=== PATIENT | female | born 1950 | race Hispanic/Latino ===

== ENCOUNTER 2018-02-02 23:36 | Emergency (ER) | payer MEDICARE ==
[2018-02-03] MEDS ORDERED: LIDOCAINE HCL 2% VISCOUS 15 ML UDCUP ONE (00:08)
[2018-02-03] MEDS ORDERED: MAGNESIUM HYDROXIDE 30 ML/UDCUP ONE (00:08)
[2018-02-03 00:13] LABS: APPEARANCE,URINE CLOUDY (CLEAR); BILIRUBIN,URINE SMALL (NEGATIVE); COLOR,URINE RED (YELLOW); GLUCOSE, URINE (UA) 500 mg/dL (NEGATIVE); KETONES,URINE 5 mg/dL (NEGATIVE); LEUKOCYTE ESTERASE ,URINE MODERATE (NEGATIVE); NITRATE,URINE POSITIVE (NEGATIVE); OCCULT BLOOD,URINE LARGE (NEGATIVE); PH,URINE 5.5 (5.0-8.0); PROTEIN,URINE 100 (NEGATIVE)
[2018-02-03 00:14] LABS: EOSINOPHILS % (AUTO) 2.5 % (0.0-8.0); HEMATOCRIT 36.9 % (36-48); MEAN CORPUSCULAR HEMOGLOBIN 29.8 pg (27.0-33.0); MEAN CORPUSCULAR HGB CONC 34.7 g/dL (32.0-36.0); MEAN CORPUSCULAR VOLUME 85.9 fL (79-99); MONOCYTES % (AUTO) 4.6 % (3.0-13.0); NEUTROPHILS % (AUTO) 62.9 % (40.0-77.0); PLATELET COUNT (AUTO) 291 K/uL (130-400); RED BLOOD CELL COUNT(AUTO) 4.29 MIL/uL (4.00-5.50); RED CELL DISTRIBUTION WIDTH 13.3 % (11.0-15.5); WHITE BLOOD COUNT (AUTO) 11.5 K/uL (4.8-10.8)
[2018-02-03 00:24] LABS: CREATININE 0.9 mg/dL (0.5-1.5); POTASSIUM 3.6 mmol/L (3.5-5.1)
[2018-02-03 00:27] LABS: BILIRUBIN,TOTAL 0.5 mg/dL (0.2-1.0); TOTAL PROTEIN, SERUM 7.8 g/dL (6.0-8.3)
[2018-02-03] MEDS ORDERED: SODIUM CHLORIDE 0.9% 50 ML IV ONE (00:27)
[2018-02-03] MEDS ORDERED: CEFTRIAXONE SODIUM 1 GM ONE (00:27)
[2018-02-03 00:29] LABS: RBC,URINE TNTC /HPF (0-1); WBC,URINE 51-100 /HPF (0-1)
[2018-02-03 00:30] LABS: BACTERIA,URINE Moderate /HPF (None Seen)
== END 2018-02-03 01:02 | disposition home or self-care (01) ==
LOC: EDH 23:36
DX: N39.0 Urinary tract infection, site not specified (principal); I10 Essential (primary) hypertension; E11.9 Type 2 diabetes mellitus without complications; E78.5 Hyperlipidemia, unspecified; Z88.8 Allergy status to other drugs, medicaments and biological substances
CPT/HCPCS: 36415; 80053; 81001; 85025; 93005; 96374; 99285; J0696

== ENCOUNTER 2018-02-18 12:03 | Emergency (ER) | payer MEDICARE ==
[2018-02-18] MEDS ORDERED: ORPHENADRINE CITRATE 30 MG/ML ML ONE (12:45)
[2018-02-18] MEDS ORDERED: KETOROLAC TROMETHAMINE 30MG/ML ONE (12:45)
== END 2018-02-18 14:43 | disposition home or self-care (01) ==
LOC: EDH 12:03
DX: S16.1XXA Strain of muscle, fascia and tendon at neck level, initial encounter (principal); M54.5 Low back pain; E11.9 Type 2 diabetes mellitus without complications; E78.5 Hyperlipidemia, unspecified; I10 Essential (primary) hypertension; Z90.710 Acquired absence of both cervix and uterus; Z88.8 Allergy status to other drugs, medicaments and biological substances; V53.6XXA Passenger in pick-up truck or van injured in collision with car, pick-up truck or van in traffic accident, initial encounter; Y93.89 Activity, other specified; Y92.89 Other specified places as the place of occurrence of the external cause; Y99.8 Other external cause status
CPT/HCPCS: 72040; 72100; 96372 ×2; 99284; J1885; J2360

== ENCOUNTER 2018-07-27 14:48 | Emergency (ER) | payer MEDICARE ==
[2018-07-27 15:18] LABS: BASOPHILS % (AUTO) 0.9 % (0.0-5.0); EOSINOPHILS % (AUTO) 2.6 % (0.0-8.0); HEMATOCRIT 40.9 % (36-48); LYMPHOCYTES % (AUTO) 32.1 % (21.0-51.0); MEAN CORPUSCULAR HGB CONC 33.8 g/dL (32.0-36.0); MEAN CORPUSCULAR VOLUME 88.8 fL (79-99); MONOCYTES % (AUTO) 4.5 % (3.0-13.0); NEUTROPHILS % (AUTO) 59.9 % (40.0-77.0); PLATELET COUNT (AUTO) 306 K/uL (130-400); RED CELL DISTRIBUTION WIDTH 13.7 % (11.0-15.5); WHITE BLOOD COUNT (AUTO) 7.7 K/uL (4.8-10.8)
[2018-07-27 15:26] LABS: CREATININE 0.8 mg/dL (0.5-1.5); POTASSIUM 3.4 mmol/L (3.5-5.1)
[2018-07-27 15:30] LABS: ALBUMIN 4.2 g/dL (3.5-5.0); BILIRUBIN,DIRECT 0.1 mg/dL (0.0-0.3); BILIRUBIN,TOTAL 0.4 mg/dL (0.2-1.0); TOTAL PROTEIN, SERUM 7.5 g/dL (6.0-8.3)
== END 2018-07-27 18:04 | disposition home or self-care (01) ==
LOC: EDH 14:48
DX: R51 Headache (principal); R42 Dizziness and giddiness; R11.0 Nausea; I10 Essential (primary) hypertension; E78.5 Hyperlipidemia, unspecified; E11.9 Type 2 diabetes mellitus without complications; Z90.710 Acquired absence of both cervix and uterus
CPT/HCPCS: 36415; 70450; 80048; 80076; 82550; 82948; 83690; 84484; 85025; 93005

== ENCOUNTER 2018-11-30 12:04 | Emergency (ER) | payer MEDICARE | END 2018-11-30 13:16 | disposition home or self-care (01) | LOC: EDH 12:04 | DX: R21 Rash and other nonspecific skin eruption (principal); E11.9 Type 2 diabetes mellitus without complications; E78.5 Hyperlipidemia, unspecified; I10 Essential (primary) hypertension; Z90.710 Acquired absence of both cervix and uterus; Z88.8 Allergy status to other drugs, medicaments and biological substances ==

== ENCOUNTER 2020-08-08 11:31 | Emergency (ER) | payer OTHER, MEDICARE ==
[2020-08-08] MEDS ORDERED: HYDROCODONE/ACETAMINOPHEN 10/325 MG TAB ONE (12:39)
[2020-08-08] MEDS ORDERED: CYCLOBENZAPRINE HCL 10 MG TABLET ONE (12:39)
[2020-08-08 12:44] LABS: BASOPHILS % (AUTO) 0.7 % (0.0-5.0); EOSINOPHILS % (AUTO) 3.9 % (0.0-8.0); HEMATOCRIT 36.7 % (36-48); LYMPHOCYTES % (AUTO) 39.9 % (21.0-51.0); MEAN CORPUSCULAR HEMOGLOBIN 29.2 pg (27.0-33.0); MEAN CORPUSCULAR HGB CONC 33.8 g/dL (32.0-36.0); MEAN CORPUSCULAR VOLUME 86.4 fL (79-99); MONOCYTES % (AUTO) 5.1 % (3.0-13.0); PLATELET COUNT (AUTO) 345 K/uL (130-400); RED BLOOD CELL COUNT(AUTO) 4.25 MIL/uL (4.00-5.50); RED CELL DISTRIBUTION WIDTH 12.6 % (11.0-15.5); WHITE BLOOD COUNT (AUTO) 6.7 K/uL (4.8-10.8)
[2020-08-08 13:02] LABS: CREATININE 0.7 mg/dL (0.5-1.5); POTASSIUM 4.3 mmol/L (3.5-5.1)
[2020-08-08 13:06] LABS: ALBUMIN 4.4 g/dL (3.5-5.0); BILIRUBIN,TOTAL 0.4 mg/dL (0.2-1.0); TOTAL PROTEIN, SERUM 7.9 g/dL (6.0-8.3)
== END 2020-08-08 13:24 | disposition home or self-care (01) ==
LOC: EDH 11:31
DX: M25.549 Pain in joints of unspecified hand (principal); M25.50 Pain in unspecified joint; E11.9 Type 2 diabetes mellitus without complications; E78.5 Hyperlipidemia, unspecified; I10 Essential (primary) hypertension; Z90.49 Acquired absence of other specified parts of digestive tract; Z90.710 Acquired absence of both cervix and uterus; Z88.6 Allergy status to analgesic agent
CPT/HCPCS: 36415; 80053; 85025

== ENCOUNTER → 2023-11-09 | Outpatient (CLI) | payer MEDICARE | END | disposition home or self-care (01) | LOC: RAH 10:01 | PROVIDERS: ATTEND Internal Medicine Gastroenterology | DX: R13.11 Dysphagia, oral phase (principal); R63.30 Feeding difficulties, unspecified | CPT/HCPCS: 74230; 92611 ==

== ENCOUNTER → 2024-01-12 | Outpatient (CLI) | payer MEDICARE ==
[~2024-01-12] MED LIST: AEC81 PO; ATOR40TA71 PO; GLIM2TAB30 PO; IOHEXOL-350 75 ML VIAL IV ONE; LISI5TAB21 PO
== END | disposition home or self-care (01) ==
LOC: RAH 08:28
PROVIDERS: ATTEND Internal Medicine Gastroenterology
DX: K80.20 Calculus of gallbladder without cholecystitis without obstruction (principal); R10.32 Left lower quadrant pain
CPT/HCPCS: 74177; Q9967

== ENCOUNTER 2024-01-16 06:46 | Day surgery (SDC) | payer MEDICARE ==
[2024-01-13 15:19] LABS: BASOPHILS # (AUTO) 0.06 K/uL (0.00-0.20); BASOPHILS % (AUTO) 0.7 % (0.0-5.0); EOSINOPHILS # (AUTO) 0.15 K/uL (0.00-0.70); EOSINOPHILS % (AUTO) 1.6 % (0.0-8.0); IMMATURE GRANULOCYTE ABSOLUTE 0.05 K/uL (0-1); LYMPHOCYTES # (AUTO) 3.2 K/uL (1.0-4.8); LYMPHOCYTES % (AUTO) 35.4 % (21.0-51.0); MEAN CORPUSCULAR HEMOGLOBIN 29.5 pg (27.0-33.0); MEAN CORPUSCULAR HGB CONC 34.2 g/dL (32.0-36.0); MEAN CORPUSCULAR VOLUME 86.3 fL (79-99); MONOCYTES # (AUTO) 0.4 K/uL (0.1-1.0); MONOCYTES % (AUTO) 4.8 % (3.0-13.0); NEUTROPHILS # (AUTO) 5.2 K/uL (1.8-7.7); PLATELET COUNT (AUTO) 289 K/uL (130-400); RED BLOOD CELL COUNT(AUTO) 4.17 MIL/uL (4.00-5.50); RED CELL DISTRIBUTION WIDTH 13.3 % (11.0-15.5); WHITE BLOOD COUNT (AUTO) 9.2 K/uL (4.8-10.8)
[2024-01-13 15:22] VITALS: BP 153/76; PULSE 70; RESP 18; TEMP 97.9
[2024-01-13 15:37] LABS: CREATININE 0.8 mg/dL (0.5-1.0)
[2024-01-16] VITALS (17 sets, daily range): BP systolic 120–172; BP diastolic 59–95; PULSE 60–79; RESP 16–22; TEMP 96.6–97.3
[~2024-01-16] VITALS: Ht 154.9 cm; Wt 63.2 kg
[~2024-01-16 06:46] MED LIST changes: +0.9%NACL 1000ML 1,000 ML IV SCH; -IOHEXOL-350 75 ML VIAL IV ONE; +ceFAZolin SODIUM 2 GM VIAL IVPB PRN
[2024-01-16] MEDS ORDERED: LIDOCAINE PF 100MG/5ML (2%) SYRINGE 5ML ONE (07:30)
[2024-01-16] MEDS ORDERED: MIDAZOLAM HCL 1 MG/ML 2ML VIAL ONE (07:30)
[2024-01-16] MEDS ORDERED: dexaMETHasone SOD PHOSPHATE 4 MG/ML 1ML VIAL ONE (07:30)
[2024-01-16] MEDS ORDERED: ondanSETRON 4MG INJ ONE (07:30)
[2024-01-16] MEDS ORDERED: proPOFol 10 MG/ML 20ML VIAL IV ONE (07:31)
[2024-01-16] MEDS ORDERED: FENTanyl CITRate PF 50 MCG/1 ML 2ML VIAL ONE (07:31)
[2024-01-16] MEDS ORDERED: rocuRONium bROMide 10MG/1ML 5ML VL ONE (07:31)
[2024-01-16] MEDS: ceFAZolin SODIUM 2 GM VIAL ONE (08:34)
[2024-01-16] MEDS: BUPIvacaine/PF 0.25% 30ML VIAL IJ ONE (08:47)
[2024-01-16] MEDS ORDERED: SUGAMMADEX SODIUM 200 MG/2 ML VIAL IV ONE (09:09)
[2024-01-16] MEDS: 0.9%NACL 1000ML 1,000 ML IV ONE (09:24)
[2024-01-16] MEDS: MEPERIDINE-PF 25 MG/ML SYG ONE (09:53)
[2024-01-16] MEDS: ondanSETRON 4MG INJ ONE (10:01)
== END 2024-01-16 11:00 | disposition home or self-care (01) ==
LOC: DAH 06:46
PROVIDERS: ATTEND Surgery
DX: D17.22 Benign lipomatous neoplasm of skin and subcutaneous tissue of left arm (principal); I10 Essential (primary) hypertension; E11.9 Type 2 diabetes mellitus without complications; E78.5 Hyperlipidemia, unspecified; K21.9 Gastro-esophageal reflux disease without esophagitis; Z90.710 Acquired absence of both cervix and uterus; Z88.8 Allergy status to other drugs, medicaments and biological substances; Z79.899 Other long term (current) drug therapy
CPT/HCPCS: 80048; 85025; 36415; 93005; 23071; 25071; 82948 ×2; 88304; A6260; J1100; A4663; J7030 ×2; A4452; J3010; J0665; J3490; J2001; J2250; J2704; J2405 ×2; J2175; J0690; A4930; A4215; A4223; A6251; A4222; A4221

== ENCOUNTER → 2024-01-27 | Outpatient (CLI) | payer MEDICARE ==
[~2024-01-27] MED LIST changes: -0.9%NACL 1000ML 1,000 ML IV SCH; -ceFAZolin SODIUM 2 GM VIAL IVPB PRN
== END | disposition home or self-care (01) ==
LOC: RAH 09:01
PROVIDERS: ATTEND Surgery
DX: L72.3 Sebaceous cyst (principal); M79.602 Pain in left arm
CPT/HCPCS: 93971